=== PATIENT | female | born 1970 | race African-American/Black ===

== ENCOUNTER → 2016-04-27 | Outpatient (CLI) | payer OTHER ==
[~2016-04-27] MED LIST: AMBIEN 5MG TABLE5 MG PO; AMBIEN10 MG PO; ANAPROX275 MG PO; AVINZA30 M1 PO; BYSTOLIC20 MG PO; CEPHALEXIN500 M1 PO; ELAVIL50 MG PO; FENTANYL 25 MCG TD; FLONASE NASAL S16 GM NS; PAXIL PO; PERCOCET 325 MG1 TAB PO; PRINIVIL40 MG PO; SAVELLA50 MG PO; SEROQUEL 200MG200 MG PO; SEROQUEL 2525 MG/TAB; VALIUM5 MG PO; WELLBUTRIN 75MG75 MG PO; WELLBUTRIN XL300 M1 PO; ZANAFLEX; ZANAFLEX 4MG TAB4 MG PO; ZESTRIL 20MG TA20 MG PO
== END ==
LOC: BHSO 14:04
DX: F33.42 Major depressive disorder, recurrent, in full remission (principal)

== ENCOUNTER → 2016-11-11 | Outpatient (CLI) | payer OTHER | LOC: BHSO 10:20 | DX: F06.32 Mood disorder due to known physiological condition with major depressive-like episode (principal) ==

== ENCOUNTER → 2017-02-08 | Outpatient (CLI) | payer OTHER | LOC: BHSO 13:29 | DX: F33.42 Major depressive disorder, recurrent, in full remission (principal) ==

== ENCOUNTER → 2017-08-09 | Outpatient (CLI) | payer OTHER | LOC: BHSO 14:01 | DX: F33.41 Major depressive disorder, recurrent, in partial remission (principal) | CPT/HCPCS: G0463 ==

== ENCOUNTER → 2018-04-23 | Outpatient (CLI) | payer OTHER | LOC: BHSO 15:25 | DX: F33.41 Major depressive disorder, recurrent, in partial remission (principal) | CPT/HCPCS: G0463 ==

== ENCOUNTER → 2018-10-15 | Outpatient (CLI) | payer OTHER | LOC: BHSO 15:04 | DX: F33.42 Major depressive disorder, recurrent, in full remission (principal) | CPT/HCPCS: G0463 ==

== ENCOUNTER 2019-01-08 13:05 | Day surgery (SDC) | payer OTHER ==
[~2019-01-08] VITALS: Ht 163.8 cm; Wt 114.3 kg
[2019-01-08 13:37] VITALS: BP 146/104; PULSE 82; TEMP 98.9
[2019-01-08] MEDS ORDERED: MOBIC15 MG PO (13:45)
[2019-01-08] MEDS ORDERED: WELLBUTRIN XL300 M1 PO (13:45)
[2019-01-08] MEDS ORDERED: ZANAFLEX 4MG TAB4 MG PO (13:45)
[2019-01-08] MEDS ORDERED: FENTANYL 25 MCG TD (13:46)
[2019-01-08] MEDS ORDERED: FOLIC ACID 11 MG/TA1 PO (13:47)
[2019-01-08] MEDS ORDERED: PERCOCET 325 MG1 TAB PO (13:47)
[2019-01-08] MEDS ORDERED: PRINIVIL40 MG PO (13:47)
[2019-01-08] MEDS ORDERED: MAG-OX 400400 MG/TAB PO (13:48)
[2019-01-08] MEDS ORDERED: SEROQUEL 200MG200 MG PO (13:48)
[2019-01-08] MEDS ORDERED: AMBIEN 5MG TABLE5 MG PO (13:49)
[2019-01-08] MEDS ORDERED: DULCOLAX TAB5 MG PO (13:50)
[2019-01-08] MEDS ORDERED: FLONASEALLERGY NS (13:50)
--- NOTE | 2019-01-08 13:52 | NUR ---
TO RM AT 1315 CALL LIGHT IN REACH AT BEDSIDE
[2019-01-08 14:50] VITALS: BP 162/95; PULSE 70; TEMP 98.5
--- NOTE | 2019-01-08 14:50 | NUR ---
TO BAY 4 PER CART FROM ENDOSCOPY. ALERT ORIENTED X3. AMBULATED TO BATHROOM WITH ASSIST. AFTER USING BATHROOM, AMBULATED TO RECLINER IN RM. AT BEDSIDE.
[2019-01-08 15:05] VITALS: BP 145/83; PULSE 72
--- NOTE | 2019-01-08 15:05 | NUR ---
RECEIVED MUFFIN AND COLA.
--- NOTE | 2019-01-08 15:15 | NUR ---
DISCONTINUED IV AND INT- CATHETER INTACT
--- NOTE | 2019-01-08 15:25 | NUR ---
DRESSED AND WAITING FOR DR TURNER ATE 100% AND TOLERATED WELL RECEIVED HOT ROJAS.
--- NOTE | 2019-01-08 15:45 | NUR ---
DR TURNER INTO TALK WITH PATIENT AND HER .
--- NOTE | 2019-01-08 15:50 | NUR ---
RECEIVED DISCHARGE INSTRUCTIONS AND VERBALIZED UNDERSTANDING.
--- NOTE | 2019-01-08 15:53 | NUR ---
AMBULATED TO BATHROOM. VOIDED AND TOLERATED WELL.
--- NOTE | 2019-01-08 15:56 | NUR ---
DISCHARGED PER WC BY NURSING STAFF TO PRIVATE CAR IN CARE OF -FLIP
== END 2019-01-08 15:57 | disposition home or self-care (01) ==
LOC: SDCO 13:05
DX: K92.1 Melena (principal); K59.00 Constipation, unspecified; K64.1 Second degree hemorrhoids; F41.9 Anxiety disorder, unspecified; F32.9 Major depressive disorder, single episode, unspecified; E66.01 Morbid (severe) obesity due to excess calories; I10 Essential (primary) hypertension; M19.90 Unspecified osteoarthritis, unspecified site; G89.29 Other chronic pain; M79.7 Fibromyalgia; Z79.891 Long term (current) use of opiate analgesic; Z88.6 Allergy status to analgesic agent; Z90.49 Acquired absence of other specified parts of digestive tract; Z90.710 Acquired absence of both cervix and uterus; Z88.8 Allergy status to other drugs, medicaments and biological substances
CPT/HCPCS: J2704; J7120

== ENCOUNTER → 2019-01-10 | Outpatient (CLI) | payer OTHER ==
[~2019-01-10] MED LIST changes: +DULCOLAX TAB5 MG PO; +FLONASEALLERGY NS; +FOLIC ACID 11 MG/TA1 PO; +MAG-OX 400400 MG/TAB PO; +MOBIC15 MG PO
== END ==
LOC: BHSO 15:29
DX: F41.1 Generalized anxiety disorder (principal)

== ENCOUNTER → 2019-04-15 | Outpatient (CLI) | payer OTHER | LOC: BHSO 14:11 | DX: F33.41 Major depressive disorder, recurrent, in partial remission (principal) | CPT/HCPCS: G0463 ==

== ENCOUNTER → 2019-08-02 | Outpatient (CLI) | payer OTHER | LOC: BHSO 15:01 | DX: F33.42 Major depressive disorder, recurrent, in full remission (principal) ==